=== PATIENT | female | born 1970 | race Caucasian/White ===

== ENCOUNTER 2016-10-18 10:39 | Emergency (ER) | payer OTHER ==
[~2016-10-18 10:39] MED LIST: ERGO50000 PO
[2016-10-18 10:41] VITALS: BP 121/63; PULSE 75; RESP 14; TEMP 97.9; O2SAT 98
--- NOTE | 2016-10-18 11:22 | PD ---
HPI Chief Complaint: Injury Time Seen by Provider: 11:18 Travel History International Travel<30 days: No Contact w/Intl Traveler<30days: No Traveled to known affect area: No History of Present Illness HPI 45-year-old female presents the emergency department with injury and pain to the right thumb. 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 Patient states it started last week but then yesterday she had a prolonged restraint which greatly aggravated her symptoms, causing her pain to be an 8 out of 10. She has decreased strength secondary to pain. Range of motion is limited secondary to pain as well. Pain is localized to the base of the right thumb with some radiation up into the right wrist on the radial aspect. She denies pain in the right elbow, shoulder, or neck. She has no other complaints and no known drug allergies. PFSH Past Medical History Heart Rhythm Problems: Yes (HEART SKIPS A BEAT INTERMITTEMELY) Cancer: No Cardiac Catheterization: No Cardiovascular Problems: Yes (HX: EKG NORMAL BUT SKIPPED BEATS - HX PERICARDITIS ) High Cholesterol: Yes Congestive Heart Failure: No Diabetes: No (TYPE II) Diminished Hearing: No Endocrine: Yes Genitourinary: No Hepatitis: No Hiatal Hernia: No Immune Disorder: No Musculoskeletal: No Neurologic: Yes (NUMBNESS & TINGLING LEFT LARGE TOE TIP; NERVE PAIN TOP LEFT FOOT ) Psychiatric: Yes (DEPRESSION TEENAGER ) Reproductive: Yes (PCOS) Respiratory: Yes (PARTIALLY COLLAPSED LUNG TEEN - NO TX REQ'D) Thyroid Disease: No Menopausal: Yes Past Surgical History Abdominal Surgery: Yes (LAP CHOLECY ) AICD: No Body Medical Devices: NONE Section: Yes Cholecystectomy: Yes Coronary Artery Bypass Graft: No Ear Surgery: No Eye Surgery: No Genitourinary Surgery: No Joint Replacement: No Oral Surgery: Yes (TONSILLECTOMY & WISDOM TEETH ) Pacemaker: No Social History Alcohol Use: No Tobacco Use: No Substance Use: No Allergies-Medications (Allergen,Severity, Reaction): Coded Allergies: No Known Allergies (Verified , 02/02/16) Reported Meds & Prescriptions Reported Meds & Active Scripts Active Prednisone 20 Mg Tab 20 Mg PO BID Reported Vitamin D / Drisdol 50,000 Units (Ergocalciferol) 50,000 Units Cap 1 Cap PO Q7D Review of Systems Except as stated in HPI: all other systems reviewed are Neg General / Constitutional: No: Fever Eyes: No: Visual changes HENT: No: Headaches Cardiovascular: No: Chest Pain or Discomfort Respiratory: No: Shortness of Breath Gastrointestinal: No: Abdominal Pain Genitourinary: No: Dysuria Musculoskeletal: Positive: Arthralgias, Limited ROM, Pain Skin: No Rash Neurologic: No: Weakness Psychiatric: No: Depression Endocrine: No: Polydipsia Hematologic/Lymphatic: No: Easy Bruising Physical Exam Narrative GENERAL: Patient appears no acute distress. SKIN: Warm and dry. Normal color. Normal turgor. No signs of trauma. HEAD: Atraumatic. Normocephalic. EYES: Pupils equal and round. No scleral icterus. No injection or drainage. ENT: No nasal bleeding or discharge. Mucous membranes pink and moist. NECK: Trachea midline. Supple and nontender. CARDIOVASCULAR: Regular rate and rhythm. RESPIRATORY: No accessory muscle use. Clear to auscultation. Breath sounds equal bilaterally. MUSCULOSKELETAL: Extremities without clubbing, cyanosis, or edema. No obvious deformities. Patient is tenderness at the base of the right thumb over the MIP joint with radiation of tenderness along the right lateral wrist. 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 No other significant findings are noted. NEUROLOGICAL: Awake and alert. No obvious cranial nerve deficits. Motor grossly within normal limits. Five out of 5 muscle strength in the arms and legs. Normal speech. PSYCHIATRIC: Appropriate mood and affect; insight and judgment normal. Data Data Last Documented VS Vital Signs Date Time Temp Pulse Resp B/P Pulse Ox O2 Delivery O2 Flow Rate FiO2 10/18/16 10:41 97.9 75 14 121/63 98 Orders Hand, Complete ([id number]) (10/18/16 11:01) Ice/Cold Pack (10/18/16 11:01) Splinting (10/18/16 ) [facility] Medical Decision Making Medical Screen Exam Complete: Yes Emergency Medical Condition: Yes Differential Diagnosis Workplace injury. Right thumb strain. Fracture. Tenosynovitis. Narrative Course Patient is medically stable at time of exam. Ice packs placed to the injured area. X-ray of the right hand is ordered. X-ray shows no acute fracture or dislocation. Patient is placed in a thumb spica splint. Prednisone 20 mg twice a day 5 days. Patient should ice the area frequently. Patient keep the splint in place until follow-up by employee med next week. Worker's Comp. forms are completed with restrictions. Diagnosis Primary Impression: Sprain of metacarpophalangeal joint of right thumb, initial encounter Referrals: Employ Med Patient Instructions: General Instructions, Skier's Thumb (ED) Additional Instructions: X-ray shows no acute fracture or dislocation. Patient is placed in a thumb spica splint. Prednisone 20 mg twice a day 5 days. Patient should ice the area frequently. Patient keep the splint in place until follow-up by employee med next week. Worker's Comp. forms are completed with restrictions. Med/Other Pt SpecificInfo: Prescription(s) given Scripts Prednisone 20 Mg Tab20 Mg PO BID #10 TAB Prov:Danny Anderson MD 10/18/16 Disposition: 01 DISCHARGE HOME Condition: Stable Abhishek Giang Oct 18, 2016 11:22
[2016-10-18] MEDS ORDERED: IBUP-232 PO (11:58)
[2016-10-18] MEDS ORDERED: PRED20 PO (12:03)
--- NOTE | 2016-10-18 12:25 | RADRPT ---
EXAM DATE/TIME: 10/18/2016 11:10 [facility] COMPARISON: No previous studies available for comparison. 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 SURGICAL HISTORY : None. ENCOUNTER: Initial ACUITY: 1 day PAIN SCORE: 5/10 LOCATION: Right hand FINDINGS: 3 views of the right hand. Minimal osteophytes of the small finger DIP joint. Bone alignment within n ormal limits. No evidence of fracture. CONCLUSION: No evidence of fracture. Juanpablo Mueller MD on October 18, 2016 at 12:21 Board Certified Radiologist. This report was verified electronically.
== END 2016-10-18 12:21 | disposition home or self-care (01) ==
LOC: NEPK 10:39
DX: S63.641A Sprain of metacarpophalangeal joint of right thumb, initial encounter (principal); X50.1XXA Overexertion from prolonged static or awkward postures, initial encounter; Y93.F9 Activity, other caregiving; Y92.239 Unspecified place in hospital as the place of occurrence of the external cause; Y99.0 Civilian activity done for income or pay
CPT/HCPCS: 73130; 99283; L3808

== ENCOUNTER 2017-01-18 20:49 | Emergency (ER) | payer OTHER ==
[~2017-01-18] VITALS: Ht 175.3 cm; Wt 70.0 kg
[~2017-01-18 20:49] MED LIST changes: +PRED20 PO
[2017-01-18 20:53] VITALS: BP 141/68; PULSE 67; RESP 16; TEMP 98.1; O2SAT 100
[2017-01-18] MEDS ORDERED: CYAN1TAB24 (21:20)
[2017-01-18] MEDS ORDERED: MULT-65 PO (21:20)
[2017-01-18] MEDS ORDERED: CALC1TAB12 PO (21:20)
[2017-01-18] MEDS ORDERED: FERR325C PO (21:20)
--- NOTE | 2017-01-18 21:26 | PD ---
HPI Chief Complaint: Chest Pain Time Seen by Provider: 21:09 Travel History International Travel<30 days: No Contact w/Intl Traveler<30days: No Traveled to known affect area: No History of Present Illness HPI 46-year-old female presents to emergency department with 5-7 minute episode of anterior chest pain while sitting. Patient to the [employer] prior to this. Patient is a gastric bypass patient of Dr. Mccracken, almost 2 years ago in March. Patient has no history of "dumping syndrome" or heartburn since her surgery. Patient states the pain was intense and as she got up and walk the length of the house seemed to improve and now is gone. She is concerned about a cardiac problem. Patient was type II diabetic and hypertensive but since the gastric bypass she no longer takes medications for these. She does have a history of anemia for which she's been taking iron supplementation. Currently her pain is less than 1/10. She never had shortness of breath with this episode of chest pain. She states no specific urinary symptoms other than occasional mild burning over the last 2 weeks. Patient does report diarrhea times one today. Patient does have a distant history of spontaneous pneumothorax as a teenager, and history of pericarditis as a young adult. She has no known drug allergies. PFSH Past Medical History Heart Rhythm Problems: Yes (HEART SKIPS A BEAT INTERMITTEMELY) Cancer: No Cardiac Catheterization: No Cardiovascular Problems: Yes (HX: EKG NORMAL BUT SKIPPED BEATS - HX PERICARDITIS ) High Cholesterol: Yes Congestive Heart Failure: No Diabetes: No (TYPE II) Diminished Hearing: No Endocrine: Yes GERD: Yes Genitourinary: No Hepatitis: No Hiatal Hernia: No Immune Disorder: No Musculoskeletal: No Neurologic: Yes (NUMBNESS & TINGLING LEFT LARGE TOE TIP; NERVE PAIN TOP LEFT FOOT ) Psychiatric: Yes (DEPRESSION TEENAGER ) Reproductive: Yes (PCOS) Respiratory: Yes (PARTIALLY COLLAPSED LUNG TEEN - NO TX REQ'D) Thyroid Disease: No Tetanus Vaccination: Unknown Influenza Vaccination: Yes ?: Not LMP: 12/23/2016 Menopausal: Yes Past Surgical History Abdominal Surgery: Yes (gastric bypass) AICD: No Body Medical Devices: NONE Section: Yes Cholecystectomy: Yes Coronary Artery Bypass Graft: No Ear Surgery: No Eye Surgery: No Genitourinary Surgery: No Joint Replacement: No Oral Surgery: Yes (TONSILLECTOMY & WISDOM TEETH ) Pacemaker: No Other Surgery: Yes (EXTRACTED NEEDLE FROM HEEL ) Social History Alcohol Use: No Tobacco Use: No Substance Use: No Allergies-Medications (Allergen,Severity, Reaction): Coded Allergies: No Known Allergies (Verified , 01/18/17) Reported Meds & Prescriptions Reported Meds & Active Scripts Active Reported Iron (Ferrous Sulfate) 325 Mg Cap 325 Mg PO DAILY Calcium 500 +D (Calcium Carbonate-Cholecalciferol) 500-400 Mg-Unit Tab 1 Tab PO BID B12 (Cyanocobalamin) 1,000 Mcg Tab Multi-Vitamin Daily (Multiple Vitamin) 1 Tab Tab 1 Tab PO DAILY Review of Systems Except as stated in HPI: all other systems reviewed are Neg General / Constitutional: No: Fever Eyes: No: Visual changes HENT: No: Headaches Cardiovascular: Positive: Chest Pain or Discomfort (see history of present illness. Now resolved.) Respiratory: No: Shortness of Breath Gastrointestinal: No: Abdominal Pain Genitourinary: No: Dysuria Musculoskeletal: No: Pain Skin: No Rash Neurologic: No: Weakness Psychiatric: Positive: Anxiety, No: Depression Endocrine: No: Polydipsia Hematologic/Lymphatic: No: Easy Bruising Physical Exam Narrative GENERAL: Patient is somewhat anxious otherwise no acute distress. SKIN: Warm and dry. Mild pallor. Normal turgor HEAD: Atraumatic. Normocephalic. EYES: Pupils equal and round. No scleral icterus. No injection or drainage. Bilateral conjunctival pallor. ENT: No nasal bleeding or discharge. Mucous membranes pink and moist. Pharynx is clear. Airway is patent. NECK: Trachea midline. Supple nontender. CARDIOVASCULAR: Regular rate and rhythm. No murmurs gallops or rubs. RESPIRATORY: No accessory muscle use. Clear to auscultation. Breath sounds equal bilaterally. GASTROINTESTINAL: Abdomen soft, non-tender, nondistended. Hepatic and splenic margins not palpable. MUSCULOSKELETAL: Extremities without clubbing, cyanosis, or edema. No obvious deformities. NEUROLOGICAL: Awake and alert. No obvious cranial nerve deficits. Motor grossly within normal limits. Five out of 5 muscle strength in the arms and legs. Normal speech. PSYCHIATRIC: Appropriate mood and affect; insight and judgment normal. Data Data Last Documented VS Vital Signs Date Time Temp Pulse Resp B/P (MAP) Pulse Ox O2 Delivery O2 Flow Rate FiO2 01/18/17 20:53 98.1 67 16 141/68 (92) 100 Room Air Orders Orders Electrocardiogram (01/18/17 21:19) Ckmb (Isoenzyme) Profile (01/18/17 21:19) Complete Blood Count With Diff (01/18/17 21:19) Comprehensive Metabolic Panel (01/18/17 21:19) Magnesium (Mg) (01/18/17 21:19) Prothrombin Time / Inr (Pt) (01/18/17 21:19) Act Partial Throm Time (Ptt) (01/18/17 21:19) Troponin I (01/18/17 21:19) Lipase (01/18/17 21:19) Chest, Single Ap (01/18/17 21:19) Ecg Monitoring (01/18/17 21:19) Bilateral Bp Monitoring (01/18/17 21:19) Iv Access Insert/Monitor (01/18/17 21:19) Oximetry (01/18/17 21:19) Oxygen Administration (01/18/17 21:19) Sodium Chloride 0.9% Flush (Ns Flush) (01/18/17 21:30) Sodium Chlorid 0.9% 500 Ml Inj (Ns 500 M (01/18/17 21:30) Labs Laboratory Tests Test 01/18/17 21:20 White Blood Count 6.3 TH/MM3 Red Blood Count 4.97 MIL/MM3 Hemoglobin 9.4 GM/DL Hematocrit 31.1 % Mean Corpuscular Volume 62.6 FL Mean Corpuscular Hemoglobin 18.9 PG Mean Corpuscular Hemoglobin Concent 30.2 % Red Cell Distribution Width 20.5 % Platelet Count 175 TH/MM3 Mean Platelet Volume 9.1 FL Neutrophils (%) (Auto) 40.8 % Lymphocytes (%) (Auto) 49.9 % Monocytes (%) (Auto) 7.6 % Eosinophils (%) (Auto) 1.3 % Basophils (%) (Auto) 0.4 % Neutrophils # (Auto) 2.6 TH/MM3 Lymphocytes # (Auto) 3.2 TH/MM3 Monocytes # (Auto) 0.5 TH/MM3 Eosinophils # (Auto) 0.1 TH/MM3 Basophils # (Auto) 0.0 TH/MM3 CBC Comment DIFF FINAL Differential Comment Prothrombin Time 10.9 SEC Prothromb Time International Ratio 1.0 RATIO Activated Partial Thromboplast Time 25.7 SEC Blood Urea Nitrogen 16 MG/DL Creatinine 0.82 MG/DL Random Glucose 66 MG/DL Total Protein 6.6 GM/DL Albumin 3.2 GM/DL Calcium Level 8.2 MG/DL Magnesium Level 2.2 MG/DL Alkaline Phosphatase 72 U/L Aspartate Amino Transf (AST/SGOT) 19 U/L Alanine Aminotransferase (ALT/SGPT) 27 U/L Total Bilirubin 0.2 MG/DL Sodium Level 140 MEQ/L Potassium Level 3.6 MEQ/L Chloride Level 107 MEQ/L Carbon Dioxide Level 27.4 MEQ/L Anion Gap 6 MEQ/L Estimat Glomerular Filtration Rate 75 ML/MIN Total Creatine Kinase 96 U/L Troponin I LESS THAN 0.02 NG/ML Lipase 271 U/L MDM Medical Decision Making Medical Screen Exam Complete: Yes Emergency Medical Condition: Yes Medical Record Reviewed: Yes Differential Diagnosis Atypical chest pain. Cardiac syndrome. Gastric bypass pain. Esophageal spasm. Anxiety. Narrative Course Patient is medically stable at time of exam. EKG shows sinus rhythm with sinus arrhythmia otherwise normal EKG. Labs ordered including CBC, CMP, lipase, cardiac panel, PT PTT and INR. Chest x-ray is ordered. Patient is given 500 mL normal saline bolus. CBC is unremarkable except for a slight decrease in hemoglobin of 9.4, hematocrit 31.1 with what appears to be a microcytic anemia. Patient is currently on iron for this very problem. CMP is unremarkable. Troponin is less than 0.02. Lipase is normal at 271. Coagulation studies are normal. Chest x-ray was unremarkable per radiologist. Patient was discussed with Dr. Rebollar who agrees the patient is stable for discharge without strong family history of heart disease or risk factors. It is understood that this is a patient of Dr. Mccracken but it was not felt warranted to call him at this time as her symptoms have resolved and do not appear to be a complication of her gastric bypass. Patient is to follow-up with her primary care physician as discussed. Diagnosis Primary Impression: Atypical chest pain Referrals: Primary Care Physician Patient Instructions: Chest Pain (ED), General Instructions Additional Instructions: CBC is unremarkable except for a slight decrease in hemoglobin of 9.4, hematocrit 31.1 with what appears to be a microcytic anemia. Patient is currently on iron for this very problem. CMP is unremarkable. Troponin is less than 0.02. Lipase is normal at 271. Coagulation studies are normal. Chest x-ray was unremarkable per radiologist. Patient was discussed with Dr. Rebollar who agrees the patient is stable for discharge without strong family history of heart disease or risk factors. It is understood that this is a patient of Dr. Mccracken but it was not felt warranted to call him at this time as her symptoms have resolved and do not appear to be a complication of her gastric bypass. Patient is to follow-up with her primary care physician as discussed. Med/Other Pt SpecificInfo: No Meds Exist/No RX given Disposition: 01 DISCHARGE HOME Condition: Stable Abhishek Giang Jan 18, 2017 21:26
[2017-01-18] MEDS ORDERED: SODIUM CHLORID 0.9% 500 ML INJ 500 ML IV ONE (21:30)
[2017-01-18] MEDS ORDERED: SODIUM CHLORIDE 0.9% FLUSH 10 ML FLUSH IVF PRN (21:30)
[2017-01-18 21:42] LABS: AUTOMATED NEUTROPHIL # 2.6 TH/MM3 (1.8-7.7); BASOPHIL % 0.4 % (0.0-2.0); EOSINOPHIL # 0.1 TH/MM3 (0-0.4); EOSINOPHIL % 1.3 % (0.0-4.0); HEMATOCRIT 31.1 % (35.0-46.0); HEMO FLAGS DIFF FINAL; LYMPH % 49.9 % (9.0-44.0); LYMPHOCYTE # 3.2 TH/MM3 (1.0-4.8); MEAN CELL VOLUME 62.6 FL (80.0-100.0); MEAN CORPUSCULAR HEMOGLOBIN 18.9 PG (27.0-34.0); MEAN CORPUSCULAR HGB CONC 30.2 % (32.0-36.0); MONO % 7.6 % (0.0-8.0); NEUT % 40.8 % (16.0-70.0); PLATELET COUNT 175 TH/MM3 (150-450); RED BLOOD COUNT 4.97 MIL/MM3 (4.00-5.30); RED CELL DISTRIBUTION WIDTH 20.5 % (11.6-17.2); WHITE BLOOD COUNT 6.3 TH/MM3 (4.0-11.0)
--- NOTE | 2017-01-18 21:43 | RADRPT ---
EXAM DATE/TIME: 01/18/2017 21:31 [facility] COMPARISON: CHEST SINGLE AP, November 23, 2014, 15:50. INDICATIONS : Chest pain. MEDICAL HISTORY : None. SURGICAL HISTORY : None. ENCOUNTER: Initial ACUITY: 1 day PAIN SCORE: 6/10 LOCATION: Bilateral chest FINDINGS: A single view of the chest demonstrates the lungs to be symmetrically aerated without evidence of mas s, infiltrate or effusion. The cardiomediastinal contours are unremarkable. Osseous structures are intact. CONCLUSION: No acute disease. Brent De Paz MD on January 18, 2017 at 21:40 Board Certified Radiologist. This report was verified electronically.
[2017-01-18 21:48] LABS: APTT (PATIENT) 25.7 SEC (24.3-30.1); PROTHROMBIN TIME - PATIENT 10.9 SEC (9.8-11.6)
[2017-01-18 21:50] LABS: ALT (GPT) 27 U/L (10-53); ANION GAP 6 MEQ/L (5-15); AST (GOT) 19 U/L (15-37); BICARBONATE 27.4 MEQ/L (21.0-32.0); BLOOD UREA NITROGEN 16 MG/DL (7-18); CHLORIDE 107 MEQ/L (98-107); GLOMERULAR FILTRATION RATE 75 ML/MIN (>89); MAGNESIUM 2.2 MG/DL (1.5-2.5); POTASSIUM 3.6 MEQ/L (3.5-5.1); SODIUM (NA) 140 MEQ/L (136-145)
[2017-01-18 21:55] LABS: ALKALINE PHOSPHATASE 72 U/L (45-117); CREATINE KINASE 96 U/L (26-192); TOTAL BILIRUBIN ADULT 0.2 MG/DL (0.2-1.0)
[2017-01-18 22:41] VITALS: BP 140/79
--- NOTE | 2017-01-19 09:10 | EKG ---
Date Performed: 01/18/2017 Time Performed: 21:08:26 PTAGE: 46 years EKG: Sinus rhythm WITH SINUS ARRHYTHMIA NORMAL ECG PREVIOUS TRACING : 11/23/2014 20.33 DOCTOR: Jaycob Nicholas Interpretating Date/Time 01/19/2017 09:09:22
== END 2017-01-18 22:44 | disposition home or self-care (01) ==
LOC: NEPC 20:49
DX: R07.89 Other chest pain (principal); I49.8 Other specified cardiac arrhythmias
CPT/HCPCS: 71010; 80053; 82550; 83690; 83735; 84484; 85025; 85610; 85730; 93005; 96360; 99285; J7040

== ENCOUNTER 2017-04-13 13:27 | Emergency (ER) | payer OTHER ==
[~2017-04-13] VITALS: Ht 175.3 cm; Wt 70.0 kg
[~2017-04-13 13:27] MED LIST changes: +CALC1TAB12 PO; +CYAN1TAB24; -ERGO50000 PO; +FERR325C PO; +MULT-65 PO; -PRED20 PO
[2017-04-13 13:29] VITALS: BP 126/68; PULSE 88; RESP 18; TEMP 100; O2SAT 97
[2017-04-13 15:13] VITALS: O2SAT 100
[2017-04-13] MEDS ORDERED: SODIUM CHLOR 0.9% 1000 ML INJ 1,000 ML IV SCH (15:13)
[2017-04-13] MEDS ORDERED: SODIUM CHLORIDE 0.9% FLUSH 10 ML FLUSH IV FLUSH PRN (15:15)
[2017-04-13 15:55] LABS: AUTOMATED NEUTROPHIL # 8.5 TH/MM3 (1.8-7.7); BASOPHIL % 0.2 % (0.0-2.0); EOSINOPHIL % 0.1 % (0.0-4.0); HEMATOCRIT 37.7 % (35.0-46.0); LYMPH % 11.2 % (9.0-44.0); LYMPHOCYTE # 1.2 TH/MM3 (1.0-4.8); MEAN CELL VOLUME 73.5 FL (80.0-100.0); MEAN CORPUSCULAR HEMOGLOBIN 25.2 PG (27.0-34.0); MEAN CORPUSCULAR HGB CONC 34.2 % (32.0-36.0); MONO % 6.9 % (0.0-8.0); NEUT % 81.6 % (16.0-70.0); PLATELET COUNT 159 TH/MM3 (150-450); RED BLOOD COUNT 5.12 MIL/MM3 (4.00-5.30); RED CELL DISTRIBUTION WIDTH 28.9 % (11.6-17.2); WHITE BLOOD COUNT 10.4 TH/MM3 (4.0-11.0)
[2017-04-13 15:58] LABS: HEMO FLAGS AUTO DIFF
[2017-04-13 16:06] LABS: APTT (PATIENT) 29.3 SEC (24.3-30.1); INTERNATIONAL NORMALIZED RATIO 1.1 RATIO; PROTHROMBIN TIME - PATIENT 12.2 SEC (9.8-11.6)
[2017-04-13 16:16] LABS: ALT (GPT) 30 U/L (10-53); ANION GAP 8 MEQ/L (5-15); AST (GOT) 20 U/L (15-37); BICARBONATE 28.5 MEQ/L (21.0-32.0); BLOOD UREA NITROGEN 15 MG/DL (7-18); CHLORIDE 100 MEQ/L (98-107); GLOMERULAR FILTRATION RATE 53 ML/MIN (>89); POTASSIUM 3.5 MEQ/L (3.5-5.1); SODIUM (NA) 136 MEQ/L (136-145)
[2017-04-13 16:18] LABS: ALKALINE PHOSPHATASE 95 U/L (45-117); TOTAL BILIRUBIN ADULT 0.4 MG/DL (0.2-1.0)
[2017-04-13 16:20] LABS: BACTERIA, URINE RARE /hpf; BLOOD, URINE SMALL (NEG); COMMENT (UR) CULTURE INDICATED; CULTURE IF INDICATED CULTURE INDICATED; GLUCOSE,URINE NEG (NEG); KETONE, URINE NEG (NEG); MUCUS URINE FEW /lpf (OCC); NITRITE,URINE NEG (NEG); URINE COLOR YELLOW (YELLW/STRAW)
[2017-04-13 16:23] LABS: OVALOCYTES 1+ (NORMAL); PLATELET ESTIMATE SMEAR NORMAL (NORMAL); PLATELET MORPHOLOGY NORMAL (NORMAL); SCAN/DIFF AUTO DIFF CONFIRMED; TEARDROP RBCS 1+ (NORMAL)
[2017-04-13] MEDS ORDERED: KETOROLAC TROMETHAMINE 30 MG/ML (IVP) VIAL IV PUSH ONE (16:45)
[2017-04-13] MEDS ORDERED: cefTRIAXone INJ 1,000 MG in SODIUM CHLORIDE 0.9% INJ 100 ML IV ONE (16:45)
--- NOTE | 2017-04-13 16:45 | PD ---
HPI Chief Complaint: Medical Clearance Time Seen by Provider: 15:12 Travel History International Travel<30 days: No Contact w/Intl Traveler<30days: No Traveled to known affect area: No History of Present Illness HPI Patient is a 46-year-old female who presents to emergency room with multiple complaints. Patient reports that for the past few months, she has had intermittent right sided flank. Patient reports that symptoms were intermittent and has now become persistent over the past few days. Reports no history of kidney stones, denies hematuria, dysuria, urinary urgency or frequency. Denies any abdominal pain at this time. Patient also reports that she's had a mild frontal headache for the past month, reports that over the past 2 days, she has had some photophobia with her symptoms. Denies thunderclap headache, reports that this is not the worst headache of her life. Reports that she did not take any ibuprofen or Motrin for her symptoms. Patient reports that for the past 2 days, she has had a fever with a tmax of 105 degrees prior to coming to the emergency room. Patient did not take any antipyretics prior coming to the emergency room, her temperature here is 100.0 degrees. She denies any cough or congestion, denies any abdominal pain, denies n/v. Reports that her child as well as her were recently sick with a URI [facility] Past Medical History Heart Rhythm Problems: Yes (HEART SKIPS A BEAT INTERMITTEMELY) Cancer: No Cardiac Catheterization: No Cardiovascular Problems: Yes (HX: EKG NORMAL BUT SKIPPED BEATS - HX PERICARDITIS ) High Cholesterol: Yes Congestive Heart Failure: No Diabetes: Yes (TYPE II) Patient Takes Glucophage: Yes Diminished Hearing: No Endocrine: Yes Gastrointestinal Disorders: Yes (HX: ACID REFLUX & GAS PAIN ) GERD: Yes Genitourinary: No Hepatitis: No Hiatal Hernia: No Hypertension: Yes (INTERMITTENT ) Immune Disorder: No Musculoskeletal: No Neurologic: Yes (NUMBNESS & TINGLING LEFT LARGE TOE TIP; NERVE PAIN TOP LEFT FOOT ) Psychiatric: Yes (DEPRESSION TEENAGER ) Reproductive: Yes (PCOS) Respiratory: Yes (PARTIALLY COLLAPSED LUNG TEEN - NO TX REQ'D) Thyroid Disease: No ?: Not LMP: 03/12/17 Menopausal: Yes Past Surgical History Abdominal Surgery: Yes (gastric bypass) AICD: No Body Medical Devices: NONE Section: Yes Cholecystectomy: Yes Coronary Artery Bypass Graft: No Ear Surgery: No Eye Surgery: No Genitourinary Surgery: No Joint Replacement: No Oral Surgery: Yes (TONSILLECTOMY & WISDOM TEETH ) Pacemaker: No Other Surgery: Yes (EXTRACTED NEEDLE FROM HEEL ) Social History Alcohol Use: No Tobacco Use: No Substance Use: No Allergies-Medications (Allergen,Severity, Reaction): Coded Allergies: No Known Allergies (Verified , 01/18/17) Reported Meds & Prescriptions Reported Meds & Active Scripts Active Reported Iron (Ferrous Sulfate) 325 Mg Cap 325 Mg PO DAILY Calcium 500 +D (Calcium Carbonate-Cholecalciferol) 500-400 Mg-Unit Tab 1 Tab PO BID B12 (Cyanocobalamin) 1,000 Mcg Tab Multi-Vitamin Daily (Multiple Vitamin) 1 Tab Tab 1 Tab PO DAILY Review of Systems General / Constitutional: No: Fever Eyes: No: Visual changes HENT: Positive: Headaches, No: Neck Stiffness, Neck Pain Cardiovascular: No: Chest Pain or Discomfort Respiratory: No: Cough, Shortness of Breath Gastrointestinal: No: Nausea, Vomiting, Diarrhea, Abdominal Pain Genitourinary: Positive: Flank Pain, No: Urgency, Frequency, Dysuria, Hematuria , Hesitancy Musculoskeletal: No: Pain Skin: No Rash Neurologic: No: Weakness Psychiatric: No: Depression Endocrine: No: Polydipsia Hematologic/Lymphatic: No: Easy Bruising Physical Exam Narrative GENERAL: Moderate distress SKIN: Focused skin assessment warm/dry. HEAD: Atraumatic. Normocephalic. EYES: Pupils equal and round. No scleral icterus. No injection or drainage. ENT: No nasal bleeding or discharge. Mucous membranes pink and moist. NECK: Trachea midline. No JVD. Negative Kernig's and Brudzinski sign CARDIOVASCULAR: Regular rate and rhythm. No murmur appreciated. RESPIRATORY: No accessory muscle use. Clear to auscultation. Breath sounds equal bilaterally. GASTROINTESTINAL: Abdomen soft, non-tender, nondistended. Hepatic and splenic margins not palpable. Patient with right sided flank pain MUSCULOSKELETAL: No obvious deformities. No clubbing. No cyanosis. No edema. NEUROLOGICAL: Awake and alert. No obvious cranial nerve deficits. Motor grossly within normal limits. Normal speech. CN 2-12 grossly intact with no neurological deficits. PSYCHIATRIC: Appropriate mood and affect; insight and judgment normal. Data Data Last Documented VS Vital Signs Date Time Temp Pulse Resp B/P (MAP) Pulse Ox O2 Delivery O2 Flow Rate FiO2 04/13/17 15:13 100 Room Air 04/13/17 13:29 100.0 88 18 Orders Orders Complete Blood Count With Diff (04/13/17 15:13) Comprehensive Metabolic Panel (04/13/17 15:13) Lipase (04/13/17 15:13) Prothrombin Time / Inr (Pt) (04/13/17 15:13) Act Partial Throm Time (Ptt) (04/13/17 15:13) Urinalysis - C+S If Indicated (04/13/17 15:13) Iv Access Insert/Monitor (04/13/17 15:13) Ecg Monitoring (04/13/17 15:13) Oximetry (04/13/17 15:13) Sodium Chlor 0.9% 1000 Ml Inj (Ns 1000 M (04/13/17 15:13) Sodium Chloride 0.9% Flush (Ns Flush) (04/13/17 15:15) Ed Urine Pregnancytest Poc (04/13/17 15:13) Urine Culture (04/13/17 15:25) Ct Abd/Pel W/O Iv Contrast (04/13/17 16:32) Ceftriaxone Inj (Rocephin Inj) (04/13/17 16:45) Labs Laboratory Tests Test 04/13/17 15:25 White Blood Count 10.4 TH/MM3 Red Blood Count 5.12 MIL/MM3 Hemoglobin 12.9 GM/DL Hematocrit 37.7 % Mean Corpuscular Volume 73.5 FL Mean Corpuscular Hemoglobin 25.2 PG Mean Corpuscular Hemoglobin Concent 34.2 % Red Cell Distribution Width 28.9 % Platelet Count 159 TH/MM3 Mean Platelet Volume 9.4 FL Neutrophils (%) (Auto) 81.6 % Lymphocytes (%) (Auto) 11.2 % Monocytes (%) (Auto) 6.9 % Eosinophils (%) (Auto) 0.1 % Basophils (%) (Auto) 0.2 % Neutrophils # (Auto) 8.5 TH/MM3 Lymphocytes # (Auto) 1.2 TH/MM3 Monocytes # (Auto) 0.7 TH/MM3 Eosinophils # (Auto) 0.0 TH/MM3 Basophils # (Auto) 0.0 TH/MM3 CBC Comment AUTO DIFF Differential Comment AUTO DIFF CONFIRMED Platelet Estimate NORMAL Platelet Morphology Comment NORMAL Tear Drop Cells 1+ Ovalocytes 1+ Prothrombin Time 12.2 SEC Prothromb Time International Ratio 1.1 RATIO Activated Partial Thromboplast Time 29.3 SEC Urine Color YELLOW Urine Turbidity CLEAR Urine pH 6.0 Urine Specific [place] 1.017 Urine Protein TRACE mg/dL Urine Glucose (UA) NEG mg/dL Urine Ketones NEG mg/dL Urine Occult Blood SMALL Urine Nitrite NEG Urine Bilirubin NEG Urine Urobilinogen LESS THAN 2.0 MG/DL Urine Leukocyte Esterase LARGE Urine RBC 7 /hpf Urine WBC 54 /hpf Urine WBC Clumps RARE Urine Bacteria RARE /hpf Urine Mucus FEW /lpf Microscopic Urinalysis Comment CULTURE INDICATED Blood Urea Nitrogen 15 MG/DL Creatinine 1.12 MG/DL Random Glucose 134 MG/DL Total Protein 7.7 GM/DL Albumin 3.5 GM/DL Calcium Level 8.7 MG/DL Alkaline Phosphatase 95 U/L Aspartate Amino Transf (AST/SGOT) 20 U/L Alanine Aminotransferase (ALT/SGPT) 30 U/L Total Bilirubin 0.4 MG/DL Sodium Level 136 MEQ/L Potassium Level 3.5 MEQ/L Chloride Level 100 MEQ/L Carbon Dioxide Level 28.5 MEQ/L Anion Gap 8 MEQ/L Estimat Glomerular Filtration Rate 53 ML/MIN Lipase 232 U/L MDM Medical Decision Making Medical Screen Exam Complete: Yes Emergency Medical Condition: Yes Medical Record Reviewed: Yes Interpretation(s) Vital Signs Date Time Temp Pulse Resp B/P (MAP) Pulse Ox O2 Delivery O2 Flow Rate FiO2 04/13/17 15:13 100 Room Air 04/13/17 13:29 100.0 88 18 126/68 (87) 97 Differential Diagnosis cephalgia, meningitis though very unlikely, kidney stone, pyelonephritis, UTI Narrative Course During the course of the patients emergency department visit, the patients history, examination, and differential diagnosis were reviewed with the patient. The patient was placed on a project manager interior design with oximetry and frequent blood pressure monitoring. The patient had 20gauge IV access obtained and blood work sent for analysis. The patient was initially provided IVF The patients laboratory studies were reviewed and remarkable for: CBC & BMP Diagram 04/13/17 15:25 Total Protein 7.7, Albumin 3.5, Calcium Level 8.7, Alkaline Phosphatase 95, Aspartate Amino Transf (AST/SGOT) 20, Alanine Aminotransferase (ALT/SGPT) 30, Total Bilirubin 0.4 UA: large leuk esteraste, 54wbc, rare bacteria, 7rbc Radiology studies were reviewed and remarkable for [-] Diagnosis Primary Impression: Pyelonephritis Additional Impression: Cephalgia Qualified Codes: R51 - Headache Patient Instructions: General Instructions Additional Instructions: Please provide patient with a copy of their lab work and studies at discharge* * Please follow up with your primary care doctor in 2-3 days Return to the ER if symptoms worsen or progress Return to the ER as needed Med/Other Pt SpecificInfo: Prescription(s) given Kierra Correa DO Apr 13, 2017 16:45
--- NOTE | 2017-04-13 18:16 | RADRPT ---
EXAM DATE/TIME: 04/13/2017 17:39 [place] COMPARISON: No previous studies available for comparison. INDICATIONS : Right flank pain for one week. ORAL CONTRAST: No oral contrast ingested. RADIATION DOSE: 5.38 CTDIvol (mGy) MEDICAL HISTORY : Hypertension. diabetes SURGICAL HISTORY : Cholecystectomy. ENCOUNTER: Initial ACUITY: 1 week PAIN SCALE: 7/10 LOCATION: Right flank TECHNIQUE: Volumetric scanning of the abdomen and pelvis was performed. Using automated exposure control and ad justment of the mA and/or kV according to patient size, radiation dose was kept as low as reasonably achievable to obtain optimal diagnostic quality images. DICOM format image data is available electro nically for review and comparison. FINDINGS: There is moderate to severe right-sided hydronephrosis and enlargement of the right kidney with urete ral dilatation into the pelvis. The ureter is difficult to follow but there does appear to be a calcu karin in the distal right ureter measuring up to about 6 mm in transverse diameter and 10 mm in length. No bladder calculi. No left-sided hydronephrosis. Scarring right lung base. No acute findings in the liver, spleen, adrenals or pancreas. Previous chol ecystectomy. Multiple bowel oc in the left lower quadrant. No free air or free fluid. CONCLUSION: 1. Moderate to severe right-sided hydronephrosis with a 6 mm x 10 mm pelvic calculus probably within the distal right ureter. Postoperative cholecystectomy, and gastric bypass surgery. Aguilar Baer MD on April 13, 2017 at 18:09 Board Certified Radiologist. This report was verified electronically.
--- NOTE | 2017-04-13 18:41 | PD ---
Data Data Last Documented VS Vital Signs Date Time Temp Pulse Resp B/P (MAP) Pulse Ox O2 Delivery O2 Flow Rate FiO2 04/13/17 19:04 04/13/17 15:13 100 Room Air 04/13/17 13:29 100.0 88 18 Orders Orders Complete Blood Count With Diff (04/13/17 15:13) Comprehensive Metabolic Panel (04/13/17 15:13) Lipase (04/13/17 15:13) Prothrombin Time / Inr (Pt) (04/13/17 15:13) Act Partial Throm Time (Ptt) (04/13/17 15:13) Urinalysis - C+S If Indicated (04/13/17 15:13) Iv Access Insert/Monitor (04/13/17 15:13) Ecg Monitoring (04/13/17 15:13) Oximetry (04/13/17 15:13) Sodium Chlor 0.9% 1000 Ml Inj (Ns 1000 M (04/13/17 15:13) Sodium Chloride 0.9% Flush (Ns Flush) (04/13/17 15:15) Ed Urine Pregnancytest Poc (04/13/17 15:13) Urine Culture (04/13/17 15:25) Ct Abd/Pel W/O Iv Contrast (04/13/17 16:32) Ceftriaxone Inj (Rocephin Inj) (04/13/17 16:45) Ketorolac Inj (Toradol Inj) (04/13/17 16:45) Tamsulosin (Flomax) (04/13/17 19:00) Ciprofloxacin (Cipro) (04/13/17 19:00) Ed Discharge Order (04/13/17 18:52) Labs Laboratory Tests Test 04/13/17 15:25 White Blood Count 10.4 TH/MM3 Red Blood Count 5.12 MIL/MM3 Hemoglobin 12.9 GM/DL Hematocrit 37.7 % Mean Corpuscular Volume 73.5 FL Mean Corpuscular Hemoglobin 25.2 PG Mean Corpuscular Hemoglobin Concent 34.2 % Red Cell Distribution Width 28.9 % Platelet Count 159 TH/MM3 Mean Platelet Volume 9.4 FL Neutrophils (%) (Auto) 81.6 % Lymphocytes (%) (Auto) 11.2 % Monocytes (%) (Auto) 6.9 % Eosinophils (%) (Auto) 0.1 % Basophils (%) (Auto) 0.2 % Neutrophils # (Auto) 8.5 TH/MM3 Lymphocytes # (Auto) 1.2 TH/MM3 Monocytes # (Auto) 0.7 TH/MM3 Eosinophils # (Auto) 0.0 TH/MM3 Basophils # (Auto) 0.0 TH/MM3 CBC Comment AUTO DIFF Differential Comment AUTO DIFF CONFIRMED Platelet Estimate NORMAL Platelet Morphology Comment NORMAL Tear Drop Cells 1+ Ovalocytes 1+ Prothrombin Time 12.2 SEC Prothromb Time International Ratio 1.1 RATIO Activated Partial Thromboplast Time 29.3 SEC Urine Color YELLOW Urine Turbidity CLEAR Urine pH 6.0 Urine Specific [place] 1.017 Urine Protein TRACE mg/dL Urine Glucose (UA) NEG mg/dL Urine Ketones NEG mg/dL Urine Occult Blood SMALL Urine Nitrite NEG Urine Bilirubin NEG Urine Urobilinogen LESS THAN 2.0 MG/DL Urine Leukocyte Esterase LARGE Urine RBC 7 /hpf Urine WBC 54 /hpf Urine WBC Clumps RARE Urine Bacteria RARE /hpf Urine Mucus FEW /lpf Microscopic Urinalysis Comment CULTURE INDICATED Blood Urea Nitrogen 15 MG/DL Creatinine 1.12 MG/DL Random Glucose 134 MG/DL Total Protein 7.7 GM/DL Albumin 3.5 GM/DL Calcium Level 8.7 MG/DL Alkaline Phosphatase 95 U/L Aspartate Amino Transf (AST/SGOT) 20 U/L Alanine Aminotransferase (ALT/SGPT) 30 U/L Total Bilirubin 0.4 MG/DL Sodium Level 136 MEQ/L Potassium Level 3.5 MEQ/L Chloride Level 100 MEQ/L Carbon Dioxide Level 28.5 MEQ/L Anion Gap 8 MEQ/L Estimat Glomerular Filtration Rate 53 ML/MIN Lipase 232 U/L [facility] Medical Record Reviewed: Yes Supervised Visit with JESSICA: No Narrative Course Case discussed with Dr Wood who prefers to manage patient in office tomorrow morning Case concerning given UTI with hydro and ureteric stone; impacted stone potentially septic is principle concern however pt quite reliable, tolerating po without difficulty,no vomiting, pain controlled and prefers outpatent follow up in the morning which is considered reasonable in this case Rocephin iv and cipro po given here Very specific instructions provided at length followed by an exchange at the bedside Patient prefers follow up as outpatient Strict return precautions discussed including prompt return to er if follow up with dr wood in his office in the first half of the day no achieved Pt and verbalized understanding Diagnosis should include Left hydronephrosis with ureter stone CBC & BMP Diagram 04/13/17 15:25 Total Protein 7.7, Albumin 3.5, Calcium Level 8.7, Alkaline Phosphatase 95, Aspartate Amino Transf (AST/SGOT) 20, Alanine Aminotransferase (ALT/SGPT) 30, Total Bilirubin 0.[address] shows distal ureter stone with hydronephrosis on L Diagnosis Primary Impression: Pyelonephritis Additional Impression: Cephalgia Qualified Codes: R51 - Headache Referrals: Salena Davenport MD (PCP) call for appointment Eamon Wood MD 1 day CALL FIRST THING TOMORROW FOR AN FRUIT HARVEST MACHINE OPERATOR APPOINTMENT. Patient Instructions: General Instructions, Flank Pain (ED) Departure Forms: Tests/Procedures Additional Instruction: Please provide patient with a copy of their lab work and studies at discharge* * Please follow up with your primary care doctor in 2-3 days Return to the ER if symptoms worsen or progress Return to the ER as needed Med/Other Pt SpecificInfo: Prescription(s) given Scripts Ketorolac (Ketorolac) 10 Mg Tab 10 MG PO Q6HR Y for PAIN, #15 TAB 0 Refills Prov: Luis Fernando Benitez MD 04/13/17 Promethazine (Phenergan) 25 Mg Tablet 25 MG PO Q6H Y for NAUSEA OR VOMITING, #10 TAB 0 Refills Prov: Luis Fernando Benitez MD 04/13/17 Tamsulosin (Flomax) 0.4 Mg Cap 0.4 MG PO HS for Manage Prostate Problems, #4 CAP 0 Refills Prov: Luis Fernando Benitez MD 04/13/17 Ciprofloxacin (Cipro) 500 Mg Tab 500 MG PO BID for Infection for 7 Days, #14 TAB 0 Refills Prov: Luis Fernando Benitez MD 04/13/17 Disposition: 01 DISCHARGE HOME Condition: Stable Luis Fernando Benitez MD Apr 13, 2017 18:41
[2017-04-13] MEDS ORDERED: CIPR-9 PO (18:51)
[2017-04-13] MEDS ORDERED: TAMS5CAP PO (18:51)
[2017-04-13] MEDS ORDERED: PROM25TA10 PO (18:51)
[2017-04-13] MEDS ORDERED: KETO10 PO (18:51)
[2017-04-13] MEDS ORDERED: TAMSULOSIN HCL 0.4 MG CAP PO ONE (19:00)
[2017-04-13] MEDS ORDERED: CIPROFLOXACIN 500 MG TAB PO ONE (19:00)
== END 2017-04-13 19:19 | disposition home or self-care (01) ==
LOC: NEPD 13:27
DX: N13.2 Hydronephrosis with renal and ureteral calculous obstruction (principal); R51 Headache; N39.0 Urinary tract infection, site not specified; B95.2 Enterococcus as the cause of diseases classified elsewhere; E78.00 Pure hypercholesterolemia, unspecified; E11.9 Type 2 diabetes mellitus without complications
CPT/HCPCS: 74176; 80053; 81001; 83690; 84703; 85025; 85610; 85730; 87077; 87086; 87186; 96361; 96365; 96375; 99285; J0696; J1885; J7030